=== PATIENT | female | born 1970 | race Two or more races ===

== ENCOUNTER 2020-10-22 03:25 | Emergency (ER) | payer SELFPAY ==
[~2020-10-22] VITALS: Ht 160 cm; Wt 52.2 kg
--- NOTE | 2020-10-22 03:42 | NUR ---
PATIENT CAME TO ER BED 10 BIBRA FROM HOME C/O PALPITATIONS AFTER INGESTING 2x CBD GUMMIES. PATIENT STATES THAT SHE TOOK SOME FROM HER FRIEND'S BOTTLE, BUT USUALLY TAKES THE SAME BRAND WITH NO ISSUES. PATIENT IS ALERT AND ORIENTED x4. DENIES SHORTNESS OF BREATH. CONNECTED TO THE FANCY PACKER.
[2020-10-22 03:43] LABS: BASOPHILS % (AUTO) 0.6 % (0.0-2.0); EOSINOPHILS % (AUTO) 1.1 % (0.0-6.0); HEMATOCRIT 41 % (33-45); HEMOGLOBIN 13.4 g/dL (11.5-14.8); LYMPHOCYTES # (AUTO) 2.8 /CMM (0.8-4.8); MEAN CORPUSCULAR HGB CONC 33 g/dl (31.0-36.0); MEAN CORPUSCULAR VOLUME 94 fL (82-100); MONOCYTES # (AUTO) 0.5 /CMM (0.1-1.30); MONOCYTES % (AUTO) 8.8 % (2.0-12.0); NEUTROPHILS # (AUTO) 1.8 /CMM (1.8-8.9); NEUTROPHILS % (AUTO) 35.5 % (43.0-81.0); PLATELET COUNT (AUTO) 222 /CMM (150-450); RED BLOOD CELL COUNT(AUTO) 4.36 MIL/uL (4.0-5.2); WHITE BLOOD COUNT (AUTO) 5.2 K/uL (4.3-11.0)
[2020-10-22 03:51] LABS: CALCIUM, SERUM 8.7 mg/dL (8.5-10.1); CARBON DIOXIDE 28 mmol/L (21-32); CHLORIDE 104 mmol/L (98-107); CREATININE 0.7 mg/dL (0.6-1.3); GLUCOSE 113 mg/dL (74-106); POTASSIUM 3.2 mmol/L (3.5-5.1); SODIUM SERUM 140 mmol/L (136-145); UREA NITROGEN, BLOOD 10 mg/dL (7-18)
--- NOTE | 2020-10-22 06:15 | NUR ---
Patient discharged to home in stable condition. Written and verbal after care instructions given. Patient verbalizes understanding of instruction.
--- NOTE | 2020-10-22 06:15 | NUR ---
PATIENT CALLED Addendum: 10/22/20 at 0616 by DEE TO PICK PATIENT UP
--- NOTE | 2020-10-22 06:15 | NUR ---
IV removed. Catheter intact and site benign. Pressure and 4x4 applied to site. No bleeding noted.
--- NOTE | 2020-10-22 06:31 | NUR ---
PATIENT PICKED UP BY THE PATIENT.
[2020-10-22 06:32] VITALS: BP 119/77
== END 2020-10-22 06:32 | disposition home or self-care (01) ==
LOC: ER 03:27
DX: R00.2 Palpitations (principal); R19.7 Diarrhea, unspecified
CPT/HCPCS: 36415; 71045-TC; 80048-TC; 84484-TC; 85025-TC